=== PATIENT | female | born 1955 | race Caucasian/White ===

== ENCOUNTER 2023-10-31 12:04 | Day surgery (SDC) | payer MEDICARE, MEDICAID ==
[2023-10-26 09:43] LABS: BASOPHILS % (AUTO) 0.7 % (0-1); EOSINOPHILS % (AUTO) 0.8 % (0-6); LYMPHOCYTES # (AUTO) 1.9 X10'3 (1.1-4.8); LYMPHOCYTES % (AUTO) 33.6 % (21-51); MEAN CORPUSCULAR HEMOGLOBIN 29.8 PG (27.0-31.0); MEAN CORPUSCULAR HGB CONC 33.9 g/dL (33.0-36.5); MONOCYTES # (AUTO) 0.6 X10'3 (0-0.9); MONOCYTES % (AUTO) 10.6 % (2-12); NEUTROPHILS # (AUTO) 3.1 X10'3 (1.8-7.7); NEUTROPHILS % (AUTO) 54.3 % (42-75); PRE OP HEMATOCRIT 36.8 % (35.0-45.0); PRE OP HEMOGLOBIN 12.4 g/dL (12.0-16.0); PRE OP PLATELET COUNT 244 X10'3 (140-440); PRE OP WHITE BLOOD COUNT 5.7 10'3 (4.8-10.8); RED BLOOD COUNT 4.18 X10'6 (4.20-5.60); RED CELL DISTRIBUTION WIDTH 13.1 % (11.5-14.5)
[2023-10-26 10:02] LABS: ALBUMIN 3.4 G/DL (3.4-5.0); ALBUMIN/GLOBULIN RATIO 1.1 (1.1-1.5); ALKALINE PHOSPHATASE 41 IU/L (46-116); BLOOD UREA NITROGEN 21 MG/DL (7-18); BUN/CREATININE RATIO 21.9 (10.0-20.0); CALCIUM 8.9 MG/DL (8.5-10.1); CHLORIDE 102 MMOL/L (99-107); CREATININE 0.96 MG/DL (0.40-0.90); PRE OP ALT 21 U/L (30-65); PRE OP ANION GAP 4 (8-16); PRE OP AST 17 U/L (10-37); PRE OP BILIRUB, TOTAL 0.2 MG/DL (0.0-1.0); PRE OP GLUCOSE 99 MG/DL (70-104); PRE OP POTASSIUM 4.4 MMOL/L (3.4-5.1); PRE OP SODIUM 138 MMOL/L (135-145); TOTAL CARBON DIOXIDE 32.5 MMOL/L (24-32); TOTAL PROTEIN 6.5 G/DL (6.4-8.2); eGFR 58 ML/MIN
[2023-10-31] VITALS (11 sets, daily range): BP systolic 126–143; BP diastolic 71–89; PULSE 54–77; RESP 13–16; TEMP 98.2; O2SAT 96–100
[~2023-10-31] VITALS: Ht 165.1 cm; Wt 71.2 kg
[2023-10-31] MEDS: cefazolin 2gm/D5W 100mL 100 ML IV ONE (05:30)
[~2023-10-31 12:04] MED LIST: ATEN25TA PO; BIOT1CAP3 PO; BUSP10TA3 PO; COLLAGEN PEPTIDES; CYCL-1 PO; DOCU-337 PO; DOCUMENT DATE & TIME OF BETA-BLOCKER PO ONE; ESTR1TAB28 PO; HYDR-3972 PO; INUL2TAB6; LACT1CAP75 PO; MAGN400T39 PO; MELO-100; MULT-1249 PO; OMEG-166 PO; TRAZ-256 PO; VITE1000C PO
[2023-10-31] MEDS ORDERED: LIDOcaine 1% (10mg/ml)w/preservative inj. 20ml MDV ONE (12:53)
[2023-10-31] MEDS ORDERED: BUPIVAcaine/PF 2.5mg/ml (0.25%) 10ml vial ONE (12:53)
[2023-10-31] MEDS: famotidine 20mg tablet PO ONE (12:58)
[2023-10-31] MEDS: ringers solution, lacted 1,000 ML IV SCH (12:59)
[2023-10-31] MEDS ORDERED: HYDROmorphone/PF 0.2 MG/ML SYRINGE IV PRN ×2 (13:00)
[2023-10-31] MEDS ORDERED: ondansetron/PF 4mg/2ml inj IV PRN (13:00)
[2023-10-31] MEDS ORDERED: morphine 4 MG/ML inj SYRINge IV PRN (13:00)
[2023-10-31] MEDS ORDERED: labetalol 20mg/4ml (5mg/ml) syringe IV PRN (13:00)
[2023-10-31] MEDS ORDERED: proCHLORperazine 10 MG/2 ml inj IV PRN (13:00)
[2023-10-31] MEDS ORDERED: hydrALAZINE 20mg/ml inj. IV PRN (13:00)
[2023-10-31] MEDS ORDERED: ringers solution, lacted 1,000 ML IV SCH (13:00)
[2023-10-31] MEDS ORDERED: sevoflurane 250ml liquid IH ONE (13:45)
[2023-10-31] MEDS ORDERED: midazolam 1 mg/ML 2ml injection ONE (13:51)
[2023-10-31] MEDS ORDERED: fentaNYL /PF 50mcg/ml 5ml ampule ONE (14:10)
[2023-10-31] MEDS ORDERED: propofol inj 20 ML IV ONE (14:17)
[2023-10-31] MEDS ORDERED: LIDOcaine 2% (20mg/ml) 5ml vial ONE (14:17)
[2023-10-31] MEDS ORDERED: ondansetron/PF 4mg/2ml inj ONE (14:17)
[2023-10-31] MEDS ORDERED: dexamethasone sod phosphate 4mg/ml inj. ONE (14:17)
[2023-10-31] MEDS: LIDOcaine 1% 30ml preserv. free vial IJ ONE (14:17)
[2023-10-31] MEDS: morphine 2 MG/ML inj. syringe IV PRN (15:22)
[2023-10-31] MEDS: acetaminophen 1,000mg/100ml IV 100 ML IV ONE (15:45)
== END 2023-10-31 16:00 | disposition home or self-care (01) ==
LOC: PRE-OP 12:04
PROVIDERS: ATTEND Surgery
DX: D24.2 Benign neoplasm of left breast (principal); L72.0 Epidermal cyst; G62.9 Polyneuropathy, unspecified; F41.9 Anxiety disorder, unspecified; F32.A Depression, unspecified; F12.90 Cannabis use, unspecified, uncomplicated; Z79.891 Long term (current) use of opiate analgesic; Z79.899 Other long term (current) drug therapy; Z90.710 Acquired absence of both cervix and uterus; Z98.41 Cataract extraction status, right eye; Z98.42 Cataract extraction status, left eye; Z98.51 Tubal ligation status; Z98.890 Other specified postprocedural states
CPT/HCPCS: 19301; 36415; 80053; 82948; 85025; 93005; J0131; J0690; J1100; J2250; J2270; J2405; J2704; J3010; J3490; J7030; J7120; Z7506; Z7508; Z7512; 88307; A4215; A4618; A6449; A7000